=== PATIENT | female | born 1980 | race African-American/Black ===

== ENCOUNTER → 2018-04-26 | Emergency (ER) | payer MEDICAID ==
[~2018-04-26] MED LIST: OLANZAPINE 10 MG VIAL IM ONE
--- NOTE | 2018-04-26 15:20 | NUR ---
BIB [facility] C/C OF ETOH. PT SMELLS OF ETOH.PT AA/OX4. NAD. VSS. NO S/S OF SOB. NO TRAUMA NOTED. AWAITING MD MYERS.
--- NOTE | 2018-04-26 15:20 | NUR ---
LAB AT BEDSIDE FOR BLOOD DRAW
--- NOTE | 2018-04-26 15:21 | NUR ---
EKG AT BEDSIDE
[2018-04-26 15:28] LABS: BASOPHILS % (AUTO) 0.7 % (0.0-2.0); EOSINOPHILS % (AUTO) 0.4 % (0.0-6.0); HEMATOCRIT 28 % (33-45); HEMOGLOBIN 9.9 g/dL (11.5-14.8); LYMPHOCYTES # (AUTO) 1.7 /CMM (0.8-4.8); LYMPHOCYTES % (AUTO) 40.4 % (20.0-44.0); MEAN CORPUSCULAR HEMOGLOBIN 32 PG (26.0-33.0); MEAN CORPUSCULAR HGB CONC 35 g/dl (31.0-36.0); MEAN CORPUSCULAR VOLUME 92 fL (82-100); MONOCYTES # (AUTO) 0.5 /CMM (0.1-1.30); MONOCYTES % (AUTO) 12.1 % (2.0-12.0); NEUTROPHILS # (AUTO) 2.1 /CMM (1.8-8.9); NEUTROPHILS % (AUTO) 46.4 % (43.0-81.0); PLATELET COUNT (AUTO) 281 /CMM (150-450); RDW COEFFICIENT OF VARIATION 18.3 (11.5-15.0); RED BLOOD CELL COUNT(AUTO) 3.07 MIL/uL (4.0-5.2); WHITE BLOOD COUNT (AUTO) 4.3 K/uL (4.3-11.0)
[2018-04-26 15:37] LABS: CALCIUM, SERUM 8.3 mg/dL (8.5-10.1); CARBON DIOXIDE 20 mmol/L (21-32); CHLORIDE 103 mmol/L (98-107); CREATININE 0.6 mg/dL (0.6-1.3); GLUCOSE 116 mg/dL (74-106); POTASSIUM 3.5 mmol/L (3.5-5.1); SODIUM SERUM 137 mmol/L (136-145); UREA NITROGEN, BLOOD 3 mg/dL (7-18)
[2018-04-26 15:41] LABS: INR 0.96 (0.85-1.15)
[2018-04-26 16:00] LABS: TROPONIN I < 0.017 ng/mL (0.00-0.056)
[2018-04-26 16:04] LABS: THYROID STIMULATING HORMONE 4.548 uIU/mL (0.358-3.74)
== END | disposition home or self-care (01) ==
LOC: ER 15:04
DX: F10.129 Alcohol abuse with intoxication, unspecified (principal); R00.2 Palpitations; E03.9 Hypothyroidism, unspecified; Y90.9 Presence of alcohol in blood, level not specified
CPT/HCPCS: 36415; 71045; 80048; 84443; 84484; 85025; 85730; 93005; 96372; 99285; G0480; J3490

== ENCOUNTER 2018-04-27 20:31 | Emergency (ER) | payer MEDICAID ==
[~2018-04-27] VITALS: Ht 172.7 cm; Wt 52.2 kg
--- NOTE | 2018-04-27 20:49 | NUR ---
BBRA FROM STREETS, PER EMS PT IS ETOH. PT NOTED TO BE AAOX4. STEADY GAIT NOTED ON AMBULATION. NO SIGNS OF OBVIOUS TRUMA NOTED. PT DENIES ANY INJURIES. SKIN WNL. PT STATES "IM DEHYDRATED". NO S/S OF ACUTE DISTRESS NOTED. PT RESTING IN BED WITH WARM BLANKET PROVIDED. PT PLACED ON PRODUCT MARKETING INTERN AND POX. PT SAFETY AND COMFORT MEASURES IN PLACE. AWAITING MD FOR EVAL.
[2018-04-27] MEDS ORDERED: IV NS 0.9% 1,000 ML BAG IV ONE (21:00)
--- NOTE | 2018-04-27 21:00 | NUR ---
PT REFUSED EKG, MADE AWARE
[2018-04-27] MEDS ORDERED: ACETAMINOPHEN ES 500 MG TABLET ONE (21:43)
[2018-04-27] MEDS ORDERED: ACETAMINOPHEN ES 500 MG TABLET PO ONE (22:00)
--- NOTE | 2018-04-27 22:11 | NUR ---
PT APPROACHED NURSING STATION STATING SHE WANTS THE IV REMOVED. IV removed. Catheter intact and site benign. Pressure and 4x4 applied to site. No bleeding noted. PT RECEIVED VERBAL DISCHARGE. PT AMBULATED OUT WITH STEADY GAIT NOTED. PT REFUSED DISCHARGE PAPERWORK
[2018-04-27 22:12] VITALS: BP 119/67
== END 2018-04-27 22:13 | disposition home or self-care (01) ==
LOC: ER 20:34
DX: F10.129 Alcohol abuse with intoxication, unspecified (principal); E03.9 Hypothyroidism, unspecified
CPT/HCPCS: 36415; A4606; G0480; J7030; Z7610

== ENCOUNTER 2018-07-18 15:57 | Emergency (ER) | payer MEDICAID, OTHER ==
[~2018-07-18] VITALS: Ht 162.6 cm; Wt 56.7 kg
--- NOTE | 2018-07-18 16:00 | NUR ---
PT BIBRA TO ER BED 12 C/O DIFFUSE ABDOMINAL PAIN X TODAY NAUSEA NO VOMITING. PT ADMITS TO DRINKING 2 BEERS TODAY. STRONG ETOH BREATH. VSS. AWAITING MD MYERS.
--- NOTE | 2018-07-18 16:21 | NUR ---
DR MEDINA AT BEDSIDE FOR EVAL.
[2018-07-18] MEDS ORDERED: IV NS 0.9% 1,000 ML BAG IV ONE (16:30)
[2018-07-18] MEDS ORDERED: PANTOPRAZOLE 40 MG VIAL IV ONE (16:30)
[2018-07-18] MEDS ORDERED: ONDANSETRON HCL/PF 4 MG/2 ML VIAL IVP ONE (16:30)
[2018-07-18] MEDS ORDERED: ACETAMINOPHEN ES 500 MG TABLET PO ONE (16:30)
--- NOTE | 2018-07-18 16:35 | NUR ---
IT SECURITY ARCHITECT AT BEDSIDE FOR BLOOD DRAW.
[2018-07-18 16:47] LABS: BASOPHILS # (AUTO) 0.1 /CMM (0.0-0.2); BASOPHILS % (AUTO) 1.2 % (0.0-2.0); EOSINOPHILS % (AUTO) 2.7 % (0.0-6.0); HEMATOCRIT 30 % (33-45); HEMOGLOBIN 10.4 g/dL (11.5-14.8); LYMPHOCYTES # (AUTO) 2.2 /CMM (0.8-4.8); LYMPHOCYTES % (AUTO) 35.5 % (20.0-44.0); MEAN CORPUSCULAR HGB CONC 35 g/dl (31.0-36.0); MEAN CORPUSCULAR VOLUME 86 fL (82-100); MONOCYTES # (AUTO) 0.3 /CMM (0.1-1.30); MONOCYTES % (AUTO) 5.4 % (2.0-12.0); NEUTROPHILS # (AUTO) 3.5 /CMM (1.8-8.9); NEUTROPHILS % (AUTO) 55.2 % (43.0-81.0); PLATELET COUNT (AUTO) 463 /CMM (150-450); RDW COEFFICIENT OF VARIATION 18.1 (11.5-15.0); WHITE BLOOD COUNT (AUTO) 6.3 K/uL (4.3-11.0)
[2018-07-18 16:57] LABS: ALBUMIN 3.9 g/dL (3.4-5.0); BILIRUBIN,DIRECT 0.1 mg/dL (0.0-0.2); BILIRUBIN,TOTAL 0.3 mg/dL (0.2-1.0); CALCIUM, SERUM 8.3 mg/dL (8.5-10.1); CREATININE 0.5 mg/dL (0.6-1.3); POTASSIUM 3.9 mmol/L (3.5-5.1); TOTAL PROTEIN, SERUM 7.8 g/dL (6.4-8.2)
[2018-07-18] MEDS ORDERED: HALOPERIDOL LACTATE INJ 5 MG/ML VIAL ONE (17:15)
[2018-07-18] MEDS ORDERED: ONDANSETRON HCL/PF 4 MG/2 ML VIAL ONE (17:15)
[2018-07-18] MEDS ORDERED: HALOPERIDOL LACTATE INJ 5 MG/ML VIAL IM ONE (17:30)
[2018-07-18] MEDS ORDERED: PANTOPRAZOLE 40 MG VIAL ONE (17:41)
[2018-07-18] MEDS ORDERED: ACETAMINOPHEN ES 500 MG TABLET ONE (18:16)
--- NOTE | 2018-07-18 19:19 | NUR ---
RN TO RN REPORT RECEIVED FOR ANASTACIO.
[2018-07-18 20:42] LABS: APPEARANCE,URINE Clear (CLEAR); BILIRUBIN,URINE Negative (NEGATIVE); BLOOD, URINE Moderate Ery/uL (NEGATIVE); COLOR,URINE Yellow (YELLOW); KETONES,URINE Negative (NEGATIVE); LEUKOCYTE ESTERASE ,URINE Negative (NEGATIVE); NITRITE, URINE Negative (NEGATIVE); PROTEIN,URINE Negative (NEGATIVE); UGLUCOSE Negative (NEGATIVE); UROBILINOGEN,URINE 0.2 EU/dL (0.2)
[2018-07-18 21:00] LABS: BACTERIA,URINE Few /HPF (None Seen); SQUAMOUS EPITHELIAL CELL,UR Few /HPF (None Seen); WBC,URINE 0-2 /HPF (0-3)
--- NOTE | 2018-07-18 21:05 | NUR ---
PT CONTINUES TO REST QUIETLY, VSS. RN TO CONTINUE MONITORING PROVIDING SAFETY/COMFORT MEASURES.
--- NOTE | 2018-07-18 23:21 | NUR ---
IV removed. Catheter intact and site benign. Pressure and 4x4 applied to site. No bleeding noted. Patient is awake and alert to self, day, and place. Patient ambulatory with a steady gait. Patient discharged to home in stable condition. Written and verbal after care instructions given. Patient verbalizes understanding of instruction.
[2018-07-18 23:22] VITALS: BP 124/81
== END 2018-07-18 23:23 | disposition home or self-care (01) ==
LOC: ER 15:59
DX: T51.91XA Toxic effect of unspecified alcohol, accidental (unintentional), initial encounter (principal); R10.30 Lower abdominal pain, unspecified; E03.9 Hypothyroidism, unspecified; F10.10 Alcohol abuse, uncomplicated; Y90.9 Presence of alcohol in blood, level not specified; R45.1 Restlessness and agitation; Y92.89 Other specified places as the place of occurrence of the external cause
CPT/HCPCS: 36415; 74176; 80048; 80076; 81001; 83690; 84702; 85025; 96372; 96374; 96375; 99285; A4606; C9113; J1630; J2405; J7030; Z7610; 81000-TC

== ENCOUNTER 2018-07-22 12:11 | Emergency (ER) | payer OTHER ==
[~2018-07-22] VITALS: Ht 157.5 cm; Wt 53.5 kg
[2018-07-22 12:16] VITALS: BP 132/82
== END 2018-07-22 12:34 | disposition home or self-care (01) ==
LOC: ER 12:13
DX: Z76.0 Encounter for issue of repeat prescription (principal); E03.9 Hypothyroidism, unspecified; F10.10 Alcohol abuse, uncomplicated; Y90.9 Presence of alcohol in blood, level not specified
CPT/HCPCS: 99283; A4606; Z7610

== ENCOUNTER 2019-03-19 19:31 | Emergency (ER) | payer OTHER ==
[~2019-03-19] VITALS: Ht 160 cm; Wt 49.9 kg
--- NOTE | 2019-03-19 19:42 | NUR ---
BIB SELF. AAOX4. BREATHING EVEN AND UNLABORED. AMBULATORY. C/O PALPITATION AND LEFT CHEST PAIN DENITA 07/16. + NAUSEA AND REPORTS VOMITING. PT STATES THAT SHE WAS HERE 2 DAYS AGO FOR PALPITATION. TO ER BED 9. MD AT BEDSIDE FOR EVAL.
--- NOTE | 2019-03-19 19:47 | NUR ---
EKG AT BEDSIDE
--- NOTE | 2019-03-19 19:55 | NUR ---
IV LINE OBTAINED ON R HAND 20G. BLOOD DRAWN AND GIVEN TO ECONOMIC ANALYST AT BEDSIDE
[2019-03-19 20:00] LABS: EOSINOPHILS % (AUTO) 1.4 % (0.0-6.0); HEMATOCRIT 33 % (33-45); HEMOGLOBIN 11.2 g/dL (11.5-14.8); LYMPHOCYTES # (AUTO) 1.8 /CMM (0.8-4.8); LYMPHOCYTES % (AUTO) 51.4 % (20.0-44.0); MEAN CORPUSCULAR HGB CONC 34 g/dl (31.0-36.0); MEAN CORPUSCULAR VOLUME 97 fL (82-100); MONOCYTES # (AUTO) 0.2 /CMM (0.1-1.30); MONOCYTES % (AUTO) 6.6 % (2.0-12.0); NEUTROPHILS # (AUTO) 1.4 /CMM (1.8-8.9); NEUTROPHILS % (AUTO) 39.6 % (43.0-81.0); PLATELET COUNT (AUTO) 510 /CMM (150-450); RED BLOOD CELL COUNT(AUTO) 3.38 MIL/uL (4.0-5.2); WHITE BLOOD COUNT (AUTO) 3.4 K/uL (4.3-11.0)
[2019-03-19 20:07] LABS: CALCIUM, SERUM 8.6 mg/dL (8.5-10.1); CARBON DIOXIDE 22 mmol/L (21-32); CHLORIDE 100 mmol/L (98-107); CREATININE 0.4 mg/dL (0.6-1.3); GLUCOSE 96 mg/dL (74-106); SODIUM SERUM 137 mmol/L (136-145); UREA NITROGEN, BLOOD 3 mg/dL (7-18)
[2019-03-19] MEDS ORDERED: KETOROLAC TROMETHAMINE INJ 60 MG/2 ML VIAL IM ONE (20:30)
[2019-03-19] MEDS ORDERED: KETOROLAC TROMETHAMINE INJ 30 MG/ML VIAL ONE (20:35)
[2019-03-19] MEDS ORDERED: SUCRALFATE 1 G/10 ML UDC ONE (20:42)
[2019-03-19] MEDS ORDERED: SUCRALFATE 1 G/10 ML UDC PO ONE (21:00)
[2019-03-19] MEDS ORDERED: LIDOCAINE VISCOUS 2% UD 15 ML UDC ONE (21:15)
[2019-03-19] MEDS ORDERED: MAG HYDROX/AL HYDROX/SIMETH 30 ML UDC ONE ×2 (21:15)
[2019-03-19] MEDS ORDERED: MAG HYDROX/AL HYDROX/SIMETH 30 ML UDC PO ONE (21:30)
[2019-03-19] MEDS ORDERED: LIDOCAINE VISCOUS 2% UD 15 ML UDC MM ONE (21:30)
[2019-03-19] MEDS ORDERED: FAMOTIDINE/PF INJ 20 MG/2 ML VIAL IV ONE ×2 (21:30→21:32)
--- NOTE | 2019-03-19 22:33 | NUR ---
Patient discharged to home in stable condition. Written and verbal after care instructions given. Patient verbalizes understanding of instruction. IV removed. Catheter intact and site benign. Pressure and 4x4 applied to site. No bleeding noted. Pt ambulatory with a steady gait
[2019-03-19 22:35] VITALS: BP 119/62
== END 2019-03-19 22:37 | disposition home or self-care (01) ==
LOC: ER 19:36
DX: R07.89 Other chest pain (principal); K29.70 Gastritis, unspecified, without bleeding; E03.9 Hypothyroidism, unspecified
CPT/HCPCS: 36415; 71045; 80048; 83690; 84443; 84484; 85025; 85378; 93005; 96372; 96374; 99284; J1885; J3490

== ENCOUNTER 2019-03-20 16:10 | Emergency (ER) | payer OTHER ==
[~2019-03-20] VITALS: Ht 160 cm; Wt 50.3 kg
--- NOTE | 2019-03-20 16:10 | NUR ---
BIB RA [facility], BY-STANDER CALLED 911 SAYING SHE TOOK A BOTTLE OF VODKA, LAYING ON A SIDEWALK,UNAROUSABLE. TO ER BED 4, HOOKED TO MONITOR, PROVIDED W WARM BLANKET, AWAITING MD MYERS.
--- NOTE | 2019-03-20 16:19 | NUR ---
DR FRANCIS AT BEDSIDE
[2019-03-20] MEDS ORDERED: IV NS 0.9% 1,000 ML BAG IV ONE (16:30)
[2019-03-20 16:44] LABS: BASOPHILS % (AUTO) 0.5 % (0.0-2.0); EOSINOPHILS % (AUTO) 1.9 % (0.0-6.0); HEMATOCRIT 32 % (33-45); LYMPHOCYTES # (AUTO) 1.6 /CMM (0.8-4.8); LYMPHOCYTES % (AUTO) 54.3 % (20.0-44.0); MEAN CORPUSCULAR HGB CONC 34 g/dl (31.0-36.0); MEAN CORPUSCULAR VOLUME 98 fL (82-100); MONOCYTES # (AUTO) 0.3 /CMM (0.1-1.30); MONOCYTES % (AUTO) 8.6 % (2.0-12.0); NEUTROPHILS % (AUTO) 34.7 % (43.0-81.0); PLATELET COUNT (AUTO) 376 /CMM (150-450); RED BLOOD CELL COUNT(AUTO) 3.28 MIL/uL (4.0-5.2); WHITE BLOOD COUNT (AUTO) 2.9 K/uL (4.3-11.0)
[2019-03-20 16:57] LABS: ACETAMINOPHEN < 2 ug/ml (10-30); ALANINE AMINOTRANSFERASE 115 U/L (12-78); ALBUMIN 3.7 g/dL (3.4-5.0); ALCOHOL, BLOOD 512 mg/dL (0-0); ALKALINE PHOSPHATASE 76 U/L (46-116); ASPARTATE AMINOTRANSFERASE 57 U/L (15-37); BILIRUBIN,DIRECT 0.2 mg/dL (0.0-0.2); BILIRUBIN,TOTAL 0.6 mg/dL (0.2-1.0); CALCIUM, SERUM 8.2 mg/dL (8.5-10.1); CARBON DIOXIDE 22 mmol/L (21-32); CHLORIDE 100 mmol/L (98-107); CREATININE 0.4 mg/dL (0.6-1.3); GLUCOSE 115 mg/dL (74-106); POTASSIUM 3.7 mmol/L (3.5-5.1); SALICYLATE 4.5 mg/dL (2.8-20.0); SODIUM SERUM 136 mmol/L (136-145); TOTAL PROTEIN, SERUM 7.5 g/dL (6.4-8.2); UREA NITROGEN, BLOOD 3 mg/dL (7-18)
[2019-03-20 17:22] LABS: APPEARANCE,URINE Clear (CLEAR); BILIRUBIN,URINE Negative (NEGATIVE); BLOOD, URINE Trace-intact Ery/uL (NEGATIVE); COLOR,URINE Yellow (YELLOW); KETONES,URINE Negative (NEGATIVE); LEUKOCYTE ESTERASE ,URINE Negative (NEGATIVE); NITRITE, URINE Negative (NEGATIVE); PROTEIN,URINE Negative (NEGATIVE); UGLUCOSE Negative (NEGATIVE); UROBILINOGEN,URINE 0.2 EU/dL (0.2)
[2019-03-20 17:25] LABS: THYROID STIMULATING HORMONE 1.872 uIU/mL (0.358-3.74)
[2019-03-20 17:43] LABS: BACTERIA,URINE Few /HPF (None Seen); SQUAMOUS EPITHELIAL CELL,UR Few /HPF (None Seen); WBC,URINE 0-2 /HPF (0-3)
[2019-03-20 18:41] LABS: EOSINOPHILS % (MANUAL) 1 % (0-4); LYMPHOCYTES % (MANUAL) 54 % (16-48); MONOCYTES % (MANUAL) 9 % (0-11.0); NEUTROPHILS % (MANUAL) 36 (42-76)
[2019-03-20 19:14] VITALS: BP 95/62
--- NOTE | 2019-03-20 19:15 | NUR ---
PT AWAKE, AOx2, AMBULATED TO RESTROOM W UNSTEADY GAIT. ASSISTED BACK TO BED. HOOKED TO MONITOR. WILL CONTINUE TO MONITOR.
--- NOTE | 2019-03-20 19:28 | NUR ---
REPORT GIVEN TO DONTRELL IBARAR FOR ANASTACIO
[2019-03-20] MEDS ORDERED: ONDANSETRON HCL/PF 4 MG/2 ML VIAL ONE (19:29)
[2019-03-20] MEDS ORDERED: ONDANSETRON HCL/PF 4 MG/2 ML VIAL IV ONE (19:30)
[2019-03-20] MEDS ORDERED: IV NS 0.9% 1,000 ML IV ONE (19:30)
--- NOTE | 2019-03-20 20:24 | NUR ---
PT ELOPED FROM EMERGENCY DEPARTMENT. IN STABLE CONDITION. VSS. AMBULATORY. -N/V AOX4.
== END 2019-03-20 20:25 | disposition left against medical advice (07) ==
LOC: ER 16:13
DX: R41.82 Altered mental status, unspecified (principal); F10.129 Alcohol abuse with intoxication, unspecified; E03.9 Hypothyroidism, unspecified; R00.0 Tachycardia, unspecified; Y90.8 Blood alcohol level of 240 mg/100 ml or more
CPT/HCPCS: 36415; 80048; 80076; 80305; 80307; 80329; 81001; 82140; 84439; 84443; 84702; 85025; 93005; 96361; 96374; 99284; G0480; J2405; J7030 ×2; 81000-TC

== ENCOUNTER 2019-03-22 09:22 | Emergency (ER) | payer OTHER ==
[~2019-03-22] VITALS: Ht 157.5 cm; Wt 50.3 kg
--- NOTE | 2019-03-22 09:28 | NUR ---
АННА FROM THE STREET FOR "HEART PALPITATIONS", ALSO ADMITS TO ETOH; PT AAOX4, PT ON MONITOR, VSS, NAD NOTED. PENDING MD MYERS
[2019-03-22 10:16] LABS: BASOPHILS % (AUTO) 0.4 % (0.0-2.0); EOSINOPHILS % (AUTO) 0.7 % (0.0-6.0); HEMATOCRIT 30 % (33-45); HEMOGLOBIN 10.3 g/dL (11.5-14.8); MEAN CORPUSCULAR HGB CONC 34 g/dl (31.0-36.0); MEAN CORPUSCULAR VOLUME 99 fL (82-100); MONOCYTES # (AUTO) 0.2 /CMM (0.1-1.30); MONOCYTES % (AUTO) 6.2 % (2.0-12.0); NEUTROPHILS # (AUTO) 1.4 /CMM (1.8-8.9); NEUTROPHILS % (AUTO) 54.7 % (43.0-81.0); PLATELET COUNT (AUTO) 326 /CMM (150-450); RED BLOOD CELL COUNT(AUTO) 3.08 MIL/uL (4.0-5.2); WHITE BLOOD COUNT (AUTO) 2.6 K/uL (4.3-11.0)
[2019-03-22 10:31] LABS: ALANINE AMINOTRANSFERASE 95 U/L (12-78); ALBUMIN 3.7 g/dL (3.4-5.0); ALCOHOL, BLOOD 280 mg/dL (0-0); ALKALINE PHOSPHATASE 71 U/L (46-116); ASPARTATE AMINOTRANSFERASE 56 U/L (15-37); BILIRUBIN,DIRECT 0.1 mg/dL (0.0-0.2); BILIRUBIN,TOTAL 0.3 mg/dL (0.2-1.0); CALCIUM, SERUM 7.9 mg/dL (8.5-10.1); CARBON DIOXIDE 23 mmol/L (21-32); CHLORIDE 104 mmol/L (98-107); CREATININE 0.5 mg/dL (0.6-1.3); GLUCOSE 144 mg/dL (74-106); POTASSIUM 3.5 mmol/L (3.5-5.1); SALICYLATE 5.8 mg/dL (2.8-20.0); SODIUM SERUM 141 mmol/L (136-145); TOTAL PROTEIN, SERUM 7.3 g/dL (6.4-8.2); UREA NITROGEN, BLOOD 3 mg/dL (7-18)
[2019-03-22 10:33] LABS: ACETAMINOPHEN < 2 ug/ml (10-30)
[2019-03-22 10:41] LABS: THYROID STIMULATING HORMONE 1.486 uIU/mL (0.358-3.74)
[2019-03-22] MEDS ORDERED: IBUPROFEN 600 MG TABLET PO ONE ×2 (10:57→11:00)
--- NOTE | 2019-03-22 11:06 | NUR ---
Patient given written and verbal discharge instructions. Patient verbalizes understanding of instructions. Patient is ambulatory with steady gait. Refuses offer of assisted placement. Patient given list of available shelters in surrounding area.
--- NOTE | 2019-03-22 11:08 | NUR ---
PT REFUSED EKG. MD DR KELLER AWARE
[2019-03-22 11:11] VITALS: BP 131/90
[2019-03-22 11:13] LABS: EOSINOPHILS % (MANUAL) 1 % (0-4); MONOCYTES % (MANUAL) 9 % (0-11.0); NEUTROPHILS % (MANUAL) 44 (42-76)
[2019-03-22 11:14] LABS: LYMPHOCYTES % (MANUAL) 46 % (16-48)
== END 2019-03-22 11:11 | disposition home or self-care (01) ==
LOC: ER 09:23
DX: F41.9 Anxiety disorder, unspecified (principal); R07.89 Other chest pain; R74.0 Nonspecific elevation of levels of transaminase and lactic acid dehydrogenase [LDH]; D72.819 Decreased white blood cell count, unspecified; D64.9 Anemia, unspecified; K70.9 Alcoholic liver disease, unspecified; F10.129 Alcohol abuse with intoxication, unspecified; E03.9 Hypothyroidism, unspecified; Z76.5 Malingerer [conscious simulation]; Y90.8 Blood alcohol level of 240 mg/100 ml or more
CPT/HCPCS: 36415; 80048; 80076; 80307; 80329; 84443; 84484; 85025; 99283; G0480

== ENCOUNTER 2019-03-24 15:00 | Emergency (ER) | payer OTHER ==
[~2019-03-24] VITALS: Ht 157.5 cm; Wt 49.0 kg
[2019-03-24] MEDS ORDERED: PROPRANOLOL HCL IV 1 MG/ML VIAL IVP ONE (15:30)
[2019-03-24] MEDS ORDERED: IV NS 0.9% 1,000 ML BAG IV ONE (15:30)
[2019-03-24] MEDS ORDERED: PROPRANOLOL HCL 1 MG/ML AMPUL IV ONE (15:30)
[2019-03-24 15:38] LABS: BASOPHILS % (AUTO) 0.9 % (0.0-2.0); EOSINOPHILS % (AUTO) 4.8 % (0.0-6.0); HEMATOCRIT 34 % (33-45); HEMOGLOBIN 11.7 g/dL (11.5-14.8); MEAN CORPUSCULAR HGB CONC 34 g/dl (31.0-36.0); MEAN CORPUSCULAR VOLUME 99 fL (82-100); MONOCYTES # (AUTO) 0.1 /CMM (0.1-1.30); NEUTROPHILS # (AUTO) 0.9 /CMM (1.8-8.9); NEUTROPHILS % (AUTO) 42.3 % (43.0-81.0); RED BLOOD CELL COUNT(AUTO) 3.48 MIL/uL (4.0-5.2); WHITE BLOOD COUNT (AUTO) 2.1 K/uL (4.3-11.0)
[2019-03-24 15:39] LABS: CALCIUM, SERUM 8.1 mg/dL (8.5-10.1); CREATININE 0.7 mg/dL (0.6-1.3); POTASSIUM 3.5 mmol/L (3.5-5.1)
[2019-03-24] MEDS ORDERED: ONDANSETRON HCL/PF 4 MG/2 ML VIAL ONE (15:40)
--- NOTE | 2019-03-24 15:40 | NUR ---
[id number] FROM A 04/16 C/O N/V, PALPITATION S/P SMELLING MARIJUANA SMOKE. PT AAOX4, VSS. DENIES CP, SOB, DIZZINESS, WEAKNESS AT THIS TIME. PT SEEN & EVAL'D BY DR. HOOKER. MEDICATED ORDERED & WILL CONT TO MONITOR.
[2019-03-24] MEDS ORDERED: ONDANSETRON HCL/PF - ER 4 MG/2 ML VIAL IV ONE (16:00)
[2019-03-24 16:14] LABS: PLATELET COUNT (AUTO) 289 /CMM (150-450)
[2019-03-24 16:16] LABS: THYROID STIMULATING HORMONE 6.85 uIU/mL (0.358-3.74)
[2019-03-24] MEDS: PROPRANOLOL LA 60 MG CAP.SA.24H PO SCH ×2 (17:10→17:36)
--- NOTE | 2019-03-24 17:45 | NUR ---
MEDICATED FOR TACHYCARDIA, PT AMRITA WELL.
--- NOTE | 2019-03-24 18:30 | NUR ---
Patient discharged to home in stable condition. Written and verbal after care instructions given. Patient verbalizes understanding of instruction. IV removed. Catheter intact and site benign. Pressure and 4x4 applied to site. No bleeding noted.
[2019-03-24 18:56] VITALS: BP 112/74
== END 2019-03-24 18:57 | disposition home or self-care (01) ==
LOC: ER 15:00
DX: R00.2 Palpitations (principal); F17.200 Nicotine dependence, unspecified, uncomplicated; E03.9 Hypothyroidism, unspecified
CPT/HCPCS: 36415; 80048; 84439; 84443; 85025; 93005; 96374; 96375; 99284; 99406; J1800 ×2; J2405; J7030